=== PATIENT | female | born 1970 | race Caucasian/White ===

== ENCOUNTER 2020-03-09 22:47 | Emergency (ER) | payer SELFPAY ==
[~2020-03-09] VITALS: Ht 160 cm; Wt 81.6 kg
[2020-03-09 22:49] VITALS: BP 119/74; Ht 160 cm; Wt 81.6 kg
== END 2020-03-10 00:36 | disposition home or self-care (01) ==
LOC: ED 22:47
DX: U07.1 COVID-19 (principal)
CPT/HCPCS: U0003-CS